=== PATIENT | male | born 1985 | race Caucasian/White ===

== ENCOUNTER 2022-03-21 18:00 | Emergency (ER) | payer OTHER ==
[~2022-03-21] VITALS: Ht 170.2 cm; Wt 71.7 kg
== END 2022-03-21 18:55 | disposition left against medical advice (07) ==
LOC: FSED 18:21
DX: S51.811A Laceration without foreign body of right forearm, initial encounter (principal); S56.891A Other injury of other muscles, fascia and tendons at forearm level, right arm, initial encounter; S66.891A Other injury of other specified muscles, fascia and tendons at wrist and hand level, right hand, initial encounter; W01.198A Fall on same level from slipping, tripping and stumbling with subsequent striking against other object, initial encounter; Y93.01 Activity, walking, marching and hiking; Y99.0 Civilian activity done for income or pay; F17.210 Nicotine dependence, cigarettes, uncomplicated
CPT/HCPCS: 99282